=== PATIENT | male | born 1970 | race Caucasian/White ===

== ENCOUNTER 2017-05-27 08:02 | Outpatient (CLI) | payer BC ==
[2016-09-20 11:58] VITALS: BP 123/85
[2017-05-27 09:02] LABS: eGFR (African) > 60; eGFR (Non-African) > 60
== END 2017-05-27 08:03 ==
LOC: LAB 08:02
PROVIDERS: ATTEND Family Medicine
DX: Z00.00 Encounter for general adult medical examination without abnormal findings (principal)
CPT/HCPCS: 36415; 80053; 80061

== ENCOUNTER 2018-06-13 07:59 | Outpatient (CLI) | payer BC ==
[2016-09-20 11:58] VITALS: BP 123/85
[2018-06-13 09:00] LABS: eGFR (African) > 60; eGFR (Non-African) > 60
== END 2018-06-13 12:37 ==
LOC: LAB 07:59
PROVIDERS: ATTEND Family Medicine
DX: Z00.00 Encounter for general adult medical examination without abnormal findings (principal)
CPT/HCPCS: 36415; 80053; 80061

== ENCOUNTER 2018-06-25 13:22 | Outpatient (CLI) | payer BC ==
[2016-09-20 11:58] VITALS: BP 123/85
--- NOTE | 2018-06-25 18:16 | Diagnostic Imaging Report ---
PAMELLA SOLOMON [facility] [address] [facility] [address] [address] Report Submission Date: Jun 25, 2018 1:47:55 PM CDT Patient Study Name: TERRA COX Date: Jun 25, 2018 1:23:04 PM CDT Modality Type: DX Gender: M Description: LOWER EXTREMITY : 66 Institution: [facility] Physician: PAMELLA SOLOMON Examination: Plain film left knee History: LEFT KNEE, PAIN IN LEFT KNEE X6-8 MONTHS, NO KNOWN INJURY (Hx) Findings: 3 views of the left knee demonstrates tibial spine spurring. No fracture. No dislocation. No joint effusion. No soft tissue irregularity. Impression: Degenerative changes. No acute osseous abnormality Electronically signed on Jun 25, 2018 1:47:55 PM CDT by: Kurt MELTON
== END 2018-06-25 13:23 ==
LOC: RAD 13:22
PROVIDERS: ATTEND Family Medicine
DX: M25.562 Pain in left knee (principal)
CPT/HCPCS: 73562

== ENCOUNTER 2018-08-12 09:45 | Emergency (ER) | payer BC ==
--- NOTE | 2018-08-12 09:55 | ED Physician Documentation ---
Chest Pain - HISTORIAN Historian: patient - HPI Chief Complaint: Chest Pain Additional Information: Patient states that he has been having some left upper chest/shoulder pain over the last 3 days. Has been constant. No precipitating factor noted. Patient states that if he abd elbow it seems to help with pain. Not sure if pain in in the chest wall or deeper. No change with breathing, exertion, eating. Has not had any chest pain previously. Has a hx of HTN. Brother who was diabetic and morbidly obese dies at 37yo from CAD. Patient hasa a history of GERDs. States that this feels different then usual GERDs. Onset: days ago (3 days) Timing: gradual onset, still present Duration: constant Last known Well Date: 08/08/18 Last Known Well Time: 08:00 Context: other (unknown, ? while working) Severity: mild Quality: pressure, aching Chest Pain Radiation: shoulders (left) Chest Pain Signs/Symptoms: denies: nausea, vomiting, diaphoresis, tachypnea, tachycardia, weakness Worsened By: nothing Relieved By: other (abd elbow) - ROS CONST: no problems. denies: fever, chills SKIN/ENDO: none - PAST HX [place] risk factors: hypertension, hyperlipidemia GI disease: GERD Lung disease: none Surgeries/Procedures: cholecysectomy, other (cyst removed form right back area, cervical diskectomy, inguinal hernia repair) Immunizations: referred to PCP Allergies/Adverse Reactions: Allergies Allergy/AdvReac Type Severity Reaction Status Date / Time No Known Drug Allergies Allergy Unverified 10/27/14 08:56 - SOCIAL HX Smoking History: non-smoker, chew Alcohol Use: occasionally Drug Use: none - FAMILY HX Family HX: CAD under 55 (brother with DM, morbid obese at 37yo) - VITAL SIGNS Vital Signs: Vital Signs Temp Pulse Resp BP Pulse Ox 123/85 09/20/16 11:40 - REVIEWED ASSESSMENTS Nursing Assessment Reviewed: Yes Vitals Reviewed: Yes Progress - Progress Progress: 10:16 No change in pain with NTG. 11:01 Pain about the same, worse with arm movement and palpation. Does not want any pain meds. ED Results Lab/Radiology - Radiology Radiology Impressions: PA AND LATERAL CHEST HISTORY: Chest pain COMPARISON: None PA and Lateral Chest dated August 12, 2018 demonstrates a normal cardiomediastinal silhouette. Pulmonary vascularity is normal. Lungs are clear. IMPRESSION: NO ACTIVE DISEASE. Chest Pain Physical Exam - EXAM General Appearance: alert, mild distress EENT: eye inspection normal Neck: nml inspection, no carotid bruit. No: lymphadenopathy Respiratory: no resp. distress, nml breath sounds, manifests distinct pain on movement, left, other (tender to palpation over the left subclavicular area). No: wheezes, rales, rhonchi CVS: reg. rate & rhythm, no murmur, no gallop Abdomen: soft, normal bowel sounds, tenderness (epigastric area) Skin: warm/dry, normal color Extremities: non-tender, normal range of motion, no evidence of injury Neuro: oriented X3, mood/affect nml, cognition normal Discharge Clincal Impression: Chest pain Referrals: Ary Cruz MD [Primary Care Provider] - 2 Days Additional Instructions: Try using a warm compress to the shoulder area. Use a sports cream to help with pain. If symptoms are not improving to follow-up with Dr Cruz Condition: Stable Disposition: 01 HOME, SELF-CARE Decision to Admit: NO Date of Decison to Admit: 08/12/18 Decision Time: 11:20
[2018-08-12 10:04] VITALS: BP 133/92
[2018-08-12] MEDS: ASPIRIN 81 MG CHEW TAB PO ONE (10:08)
[2018-08-12] MEDS: NITROGLYCERIN 0.4 MG TAB.SUBL SL ONE (10:08)
[2018-08-12 10:34] LABS: eGFR (Non-African) > 60
[2018-08-12 12:21] LABS: BASO % 0.7 % (0.0-1.5); EOS % 4.6 % (0.0-6.8); LYMPH ABS # 1.59 thou/uL (0.60-4.00); MCH. 33.8 pg (28.0-34.0); MONOCYTE % 6.9 % (0.0-11.0); MONOCYTE ABS # 0.37 thou/uL (0.00-0.90); PLATELET COUNT 197 thou/uL (130-400)
--- NOTE | 2018-08-12 13:41 | Diagnostic Imaging Report ---
FAM ZAPATA [facility] [address] [facility] [address] [address] Report Submission Date: Aug 12, 2018 11:03:03 AM CDT Patient Study Name: TERRA COX Date: Aug 12, 2018 10:22:01 AM CDT Modality Type: DX Gender: M Description: CHEST : 66 Institution: [facility] Physician: FAM ZAPATA PA AND LATERAL CHEST HISTORY: Chest pain COMPARISON: None PA and Lateral Chest dated August 12, 2018 demonstrates a normal cardiomediastinal silhouette. Pulmonary vascularity is normal. Lungs are clear. IMPRESSION: NO ACTIVE DISEASE. Electronically signed on Aug 12, 2018 11:03:03 AM CDT by: Gladis MELTON
== END 2018-08-12 11:31 | disposition home or self-care (01) ==
LOC: ED 09:45
DX: R07.9 Chest pain, unspecified (principal)
CPT/HCPCS: 71046; 80053; 82550; 84484; 85025; S1016

== ENCOUNTER 2019-05-22 07:43 | Outpatient (CLI) | payer BC ==
[2019-05-22 09:23] LABS: eGFR (Non-African) > 60
[2019-05-22 09:24] LABS: HDL 70 mg/dL (>40)
== END 2019-05-22 07:44 ==
LOC: LAB 07:43
PROVIDERS: ATTEND Family Medicine
DX: Z13.220 Encounter for screening for lipoid disorders (principal); Z12.5 Encounter for screening for malignant neoplasm of prostate
CPT/HCPCS: 36415; 80053; 80061; 84153